=== PATIENT | female | born 1945 | race African-American/Black ===

== ENCOUNTER 2017-07-30 17:46 | Emergency (ER) | payer MEDICARE, OTHER ==
[~2017-07-30] VITALS: Ht 165.1 cm; Wt 75.0 kg
[~2017-07-30 17:46] MED LIST: ALEN35TA32 PO; ASCO500 PO; ENAL20TA PO; METF500T4 PO; VERA120T11 PO; VITAD1000 PO
[2017-07-30 17:54] VITALS: BP 175/95
[2017-07-30 18:08] LABS: GLUCOSE,POINT OF CARE 119 MG/DL (70-110)
[2017-07-30] MEDS ORDERED: CEPHALEXIN MONOHYDRATE 500 MG CAPSULE PO ONE (18:45)
== END 2017-07-30 19:15 | disposition home or self-care (01) ==
LOC: EMS 17:48
DX: S90.561A Insect bite (nonvenomous), right ankle, initial encounter (principal); L08.9 Local infection of the skin and subcutaneous tissue, unspecified; I10 Essential (primary) hypertension; Z91.018 Allergy to other foods; W57.XXXA Bitten or stung by nonvenomous insect and other nonvenomous arthropods, initial encounter; Y93.89 Activity, other specified; Y92.89 Other specified places as the place of occurrence of the external cause; Y99.8 Other external cause status
CPT/HCPCS: 82962; 99283

== ENCOUNTER 2017-09-08 06:06 | Inpatient (IN) | payer MEDICARE, OTHER ==
[~2017-09-08] VITALS: Ht 165.1 cm; Wt 74.5 kg
[2017-09-08 06:23] LABS: GLUCOSE,POINT OF CARE 100 MG/DL (70-110)
[2017-09-08] MEDS: SODIUM CHLORIDE 0.9% 1,000 ML IV ONE ×2 (09:10→10:42)
[2017-09-08] MEDS: FAMOTIDINE 10 MG/ML 2 ML VIAL IVP ONE ×2 (09:11→10:41)
[2017-09-08] MEDS: MethylPREDNISolone SOD SUCC 125 MG/2 ML VIAL IVP ONE ×2 (09:11→10:41)
[2017-09-08] MEDS: DiphenhydrAMINE HCL 50 MG/ML VIAL IVP ONE ×2 (09:11→10:42)
[2017-09-08 15:26] LABS: BASOPHILS % (AUTO) 0.3 % (0.0-2.0); EOSINOPHILS % (AUTO) 0 % (1.0-6.0); HEMATOCRIT 37.8 % (36-46); LYMPHOCYTES # (AUTO) 0.8 K/uL (1.0-4.8); LYMPHOCYTES % (AUTO) 12.1 % (22.0-44.0); MEAN CORPUSCULAR HEMOGLOBIN 22.1 pg (26.0-34.0); MEAN CORPUSCULAR HGB CONC 31.7 G/dL (31.0-37.0); MEAN CORPUSCULAR VOLUME 70 fL (80-100); MONOCYTES % (AUTO) 0.7 % (2.0-9.0); NEUTROPHILS # (AUTO) 5.8 K/uL (1.8-7.7); RED BLOOD CELL COUNT(AUTO) 5.42 MIL/uL (4.00-5.20)
[2017-09-08] MEDS ORDERED: ACETAMINOPHEN 325 MG TABLET PO PRN ×2 (15:30→19:45)
[2017-09-08] MEDS ORDERED: 0.9% SODIUM CHLORIDE 10 ML SYRINGE IVP PRN (15:30)
[2017-09-08] MEDS ORDERED: ONDANSETRON HCL 4 MG/2 ML VIAL IVP PRN ×2 (15:30→19:45)
[2017-09-08 15:32] LABS: NEUTROPHILS % (AUTO) 86.9 % (40.0-70.0)
[2017-09-08 16:00] LABS: ANION GAP 10 mmol/L (8-16); CARBON DIOXIDE 26 mmol/L (22-29); CHLORIDE 105 mmol/L (98-107); CREATININE 0.98 mg/dL (0.60-1.30); GLOMERULAR FILTR. RATE CALC > 60 mL/min (>60); GLUCOSE,RANDOM 155 mg/dL (70-110); PROTHROMBIN TIME 10.4 SEC (9.4-11.6); SODIUM SERUM 141 mmol/L (136-145); UREA NITROGEN, BLOOD 12 mg/dL (7-18)
[2017-09-08 16:07] LABS: ALANINE AMINOTRANSFERASE 18 U/L (12-78); ALKALINE PHOSPHATASE 70 U/L (46-116); ASPARTATE AMINOTRANSFERASE 13 U/L (15-37); BILIRUBIN,TOTAL 0.3 mg/dL (0.1-1.0); TOTAL PROTEIN, SERUM 8.1 g/dL (6.4-8.2)
[2017-09-08 16:19] LABS: PLATELET COUNT (AUTO) 298 K/uL (150-450)
[2017-09-08 16:34] VITALS: BP 148/59
[2017-09-08] MEDS: MetFORMIN HCL 500 MG TABLET PO SCH (18:32)
[2017-09-08] MEDS: CHOLECALCIFEROL (VIT D3) 1,000 UNITS TABLET PO SCH (18:32)
[2017-09-08] MEDS: ASCORBIC ACID 500 MG TABLET PO SCH (18:33)
[2017-09-08 19:07] LABS: GLUCOMETER DEV NAME(LOC) 6N 1E; GLUCOSE,POINT OF CARE 175 MG/DL (70-110)
[2017-09-08 19:30] VITALS: BP_SYST 119; BP_SYST 148; BP_DIAS 53; BP_DIAS 78
[2017-09-08] MEDS ORDERED: MAGNESIUM HYDROXIDE SUSPENSION 30 ML UDCUP PO PRN (19:45)
[2017-09-08] MEDS ORDERED: ZOLPIDEM TARTRATE 5 MG TABLET PO PRN (19:45)
[2017-09-08] MEDS ORDERED: MORPHINE SULFATE 2 MG/ML SYRINGE IVP PRN (19:45)
[2017-09-08] MEDS ORDERED: BISACODYL 10 MG RECTAL RECTAL SUPPOSITORY PR PRN (19:45)
[2017-09-08] MEDS ORDERED: HYDROCODONE/ACETAMINOPHEN 5-325 MG TABLET PO PRN (19:45)
[2017-09-08] MEDS: MethylPREDNISolone SOD SUCC 40 MG/ML VIAL IVP SCH (20:56)
[2017-09-08] MEDS: DiphenhydrAMINE HCL 25 MG CAPSULE PO SCH (20:56)
[2017-09-08] MEDS: DOCUSATE SODIUM 100 MG CAPSULE PO SCH (20:56)
[2017-09-08] MEDS: FAMOTIDINE 10 MG/ML 2 ML VIAL IVP SCH (20:56)
[2017-09-08] MEDS: VERAPAMIL HCL 120 MG ER TABLET PO SCH (20:56)
[2017-09-08] MEDS ORDERED: DEXTROSE 50%-WATER 25 GM/50 ML SYRINGE IVP PRN (21:15)
[2017-09-08] MEDS: INSULIN ASPART 100 UNITS/ML SQ PRN (21:21)
[2017-09-08 22:02] LABS: GLUCOMETER DEV NAME(LOC) 6N 2D; GLUCOSE,POINT OF CARE 246 MG/DL (70-110)
[2017-09-09 00:02] VITALS: BP 157/90
[2017-09-09 04:00] VITALS: BP 140/79
[2017-09-09] MEDS: INSULIN ASPART 100 UNITS/ML SQ PRN ×4 (05:48→20:58)
[2017-09-09 05:57] LABS: GLUCOMETER DEV NAME(LOC) 6N 2D; GLUCOSE,POINT OF CARE 225 MG/DL (70-110)
[2017-09-09] MEDS ORDERED: ALENDRONATE SODIUM 35 MG TABLET PO SCH (06:30)
[2017-09-09 07:48] VITALS: BP 148/75
[2017-09-09] MEDS: MethylPREDNISolone SOD SUCC 40 MG/ML VIAL IVP SCH ×2 (07:56→20:45)
[2017-09-09] MEDS: VERAPAMIL HCL 120 MG ER TABLET PO SCH (07:56)
[2017-09-09] MEDS: PANTOPRAZOLE SODIUM 40 MG DR TABLET PO SCH (07:57)
[2017-09-09] MEDS: DOCUSATE SODIUM 100 MG CAPSULE PO SCH ×2 (07:57→20:45)
[2017-09-09] MEDS: MetFORMIN HCL 500 MG TABLET PO SCH (07:57)
[2017-09-09] MEDS: FAMOTIDINE 10 MG/ML 2 ML VIAL IVP SCH ×2 (07:57→20:45)
[2017-09-09] MEDS: ASCORBIC ACID 500 MG TABLET PO SCH (07:57)
[2017-09-09] MEDS: CHOLECALCIFEROL (VIT D3) 1,000 UNITS TABLET PO SCH (07:57)
[2017-09-09] MEDS: DiphenhydrAMINE HCL 25 MG CAPSULE PO SCH ×2 (07:57→20:45)
[2017-09-09] MEDS: HEPARIN SODIUM,PORCINE 5,000 UNITS/ML VIAL SQ SCH ×3 (07:57→16:00)
[2017-09-09 12:00] VITALS: BP 137/73
[2017-09-09 12:53] LABS: GLUCOMETER DEV NAME(LOC) 6N 1E; GLUCOSE,POINT OF CARE 144 MG/DL (70-110)
[2017-09-09 15:56] VITALS: BP 118/74
[2017-09-09 19:22] LABS: GLUCOMETER DEV NAME(LOC) 6N 2D; GLUCOSE,POINT OF CARE 170 MG/DL (70-110)
[2017-09-09 20:17] VITALS: BP 132/68
[2017-09-10] MEDS: HEPARIN SODIUM,PORCINE 5,000 UNITS/ML VIAL SQ SCH ×2 (00:15→10:17)
[2017-09-10 00:16] VITALS: BP 140/76
[2017-09-10 05:49] VITALS: BP 144/96
[2017-09-10 05:53] LABS: GLUCOMETER DEV NAME(LOC) 6N 1E; GLUCOSE,POINT OF CARE 202 MG/DL (70-110)
[2017-09-10] MEDS: INSULIN ASPART 100 UNITS/ML SQ PRN ×2 (06:19→11:59)
[2017-09-10 07:52] VITALS: BP 148/79
[2017-09-10 08:47] LABS: GLUCOMETER DEV NAME(LOC) 6N 2D; GLUCOSE,POINT OF CARE 145 MG/DL (70-110)
[2017-09-10] MEDS ORDERED: PRED20 PO (09:49)
[2017-09-10] MEDS: PANTOPRAZOLE SODIUM 40 MG DR TABLET PO SCH (10:17)
[2017-09-10] MEDS: VERAPAMIL HCL 120 MG ER TABLET PO SCH (10:17)
[2017-09-10] MEDS: DiphenhydrAMINE HCL 25 MG CAPSULE PO SCH (10:17)
[2017-09-10] MEDS: MetFORMIN HCL 500 MG TABLET PO SCH (10:17)
[2017-09-10] MEDS: CHOLECALCIFEROL (VIT D3) 1,000 UNITS TABLET PO SCH (10:17)
[2017-09-10] MEDS: DOCUSATE SODIUM 100 MG CAPSULE PO SCH (10:17)
[2017-09-10] MEDS: MethylPREDNISolone SOD SUCC 40 MG/ML VIAL IVP SCH (10:17)
[2017-09-10] MEDS: FAMOTIDINE 10 MG/ML 2 ML VIAL IVP SCH (10:17)
[2017-09-10] MEDS: ASCORBIC ACID 500 MG TABLET PO SCH (10:17)
[2017-09-10 12:07] VITALS: BP 152/71
[2017-09-10 19:38] LABS: GLUCOMETER DEV NAME(LOC) 6N 1E; GLUCOSE,POINT OF CARE 103 MG/DL (70-110)
[2017-09-12] MEDS ORDERED: ALENDRONATE SODIUM 35 MG TABLET PO SCH (06:30)
== END 2017-09-10 14:25 | disposition home or self-care (01) | DRG 916 ==
LOC: EDUNIT# 06:06 → EMS 06:08 → 6N 15:18
PROVIDERS: ADMIT Internal Medicine; ATTEND Internal Medicine
DX: T78.3XXA Angioneurotic edema, initial encounter (principal); E11.9 Type 2 diabetes mellitus without complications; E55.9 Vitamin D deficiency, unspecified; X58.XXXA Exposure to other specified factors, initial encounter; I10 Essential (primary) hypertension; Z90.710 Acquired absence of both cervix and uterus; Z91.018 Allergy to other foods; Z91.013 Allergy to seafood; Z79.84 Long term (current) use of oral hypoglycemic drugs; Z79.899 Other long term (current) drug therapy
CPT/HCPCS: 82962; 93005; 96374; 96375; 99285; J1200; J1644; J2920; J2930; J3490; J7030

== ENCOUNTER 2017-11-04 12:35 | Emergency (ER) | payer MEDICARE, OTHER ==
[~2017-11-04] VITALS: Ht 165.1 cm; Wt 74.1 kg
[~2017-11-04 12:35] MED LIST changes: +PRED20 PO
[2017-11-04 12:48] LABS: GLUCOSE,POINT OF CARE 119 MG/DL (70-110)
[2017-11-04] MEDS ORDERED: VERA180SR PO (15:16)
[2017-11-04] MEDS: ONDANSETRON HCL 4 MG TABLET PO ONE (16:18)
[2017-11-04] MEDS: HYDROCODONE/ACETAMINOPHEN 5-325 MG TABLET PO ONE (16:19)
[2017-11-04 17:41] VITALS: BP 142/82
== END 2017-11-04 19:05 | disposition home or self-care (01) ==
LOC: EMS 12:36
DX: S16.1XXA Strain of muscle, fascia and tendon at neck level, initial encounter (principal); M48.02 Spinal stenosis, cervical region; J06.9 Acute upper respiratory infection, unspecified; E11.9 Type 2 diabetes mellitus without complications; I44.7 Left bundle-branch block, unspecified; I10 Essential (primary) hypertension; Z88.8 Allergy status to other drugs, medicaments and biological substances; Z91.013 Allergy to seafood; Z91.018 Allergy to other foods; X58.XXXA Exposure to other specified factors, initial encounter; Y93.89 Activity, other specified; Y92.89 Other specified places as the place of occurrence of the external cause; Y99.8 Other external cause status
CPT/HCPCS: 70450; 72125; 82962; 93005; 99284; Q0162

== ENCOUNTER 2017-11-05 22:09 | Emergency (ER) | payer MEDICARE, OTHER ==
[~2017-11-05] VITALS: Ht 165.1 cm; Wt 74.0 kg
[~2017-11-05 22:09] MED LIST changes: -ENAL20TA PO; -VERA120T11 PO; +VERA180SR PO
[2017-11-05] MEDS ORDERED: KETOROLAC TROMETHAMINE 60 MG/2 ML VIAL IM ONE (23:00)
[2017-11-05] MEDS ORDERED: KETOROLAC TROMETHAMINE 30 MG/ML VIAL IVP ONE (23:00)
[2017-11-05 23:54] VITALS: BP 150/74
== END 2017-11-05 23:59 | disposition home or self-care (01) ==
LOC: EMS 22:14
DX: S13.9XXA Sprain of joints and ligaments of unspecified parts of neck, initial encounter (principal); Z91.013 Allergy to seafood; E11.9 Type 2 diabetes mellitus without complications; I10 Essential (primary) hypertension; Z79.899 Other long term (current) drug therapy; X58.XXXA Exposure to other specified factors, initial encounter; Y93.89 Activity, other specified; Y92.89 Other specified places as the place of occurrence of the external cause; Y99.8 Other external cause status
CPT/HCPCS: 96372; 99283; J1885

== ENCOUNTER 2017-11-13 13:22 | Emergency (ER) | payer MEDICARE, OTHER ==
[~2017-11-13] VITALS: Ht 165.1 cm; Wt 74.1 kg
[2017-11-13 13:32] LABS: GLUCOSE,POINT OF CARE 115 MG/DL (70-110)
[2017-11-13] MEDS ORDERED: HYDR-4061 PO (13:33)
[2017-11-13] MEDS ORDERED: DEXAMETHASONE SOD PHOS 4 MG/ML 5 ML VIAL IM ONE (16:15)
[2017-11-13] MEDS ORDERED: MORPHINE SULFATE 4 MG/ML SYRINGE IM ONE (16:15)
[2017-11-13] MEDS ORDERED: ONDANSETRON HCL 4 MG/2 ML VIAL IM ONE (16:15)
[2017-11-13] MEDS ORDERED: LIDOCAINE HCL 5% TRANSDERMAL PATCH TD ONE (16:30)
[2017-11-13 16:52] VITALS: BP 174/56
== END 2017-11-13 17:27 | disposition home or self-care (01) ==
LOC: EMS 13:24
DX: M50.80 Other cervical disc disorders, unspecified cervical region (principal); M62.838 Other muscle spasm; E11.9 Type 2 diabetes mellitus without complications; I10 Essential (primary) hypertension; Z88.8 Allergy status to other drugs, medicaments and biological substances; Z91.018 Allergy to other foods; Z91.013 Allergy to seafood
CPT/HCPCS: 82962; 96372; 99284; J1100; J2270; J2405

== ENCOUNTER 2019-06-18 21:14 | Emergency (ER) | payer MEDICARE, OTHER ==
[~2019-06-18] VITALS: Ht 160 cm; Wt 76.8 kg
[~2019-06-18 21:14] MED LIST changes: -ALEN35TA32 PO; +CHOL100018 PO; +HYDR-4061 PO; -METF500T4 PO; -PRED20 PO; -VERA180SR PO; -VITAD1000 PO
[2019-06-18] MEDS ORDERED: MethylPREDNISolone SOD SUCC 125 MG/2 ML VIAL IVP ONE (21:30)
[2019-06-18] MEDS ORDERED: FAMOTIDINE 10 MG/ML 2 ML VIAL IVP ONE (21:30)
[2019-06-18] MEDS ORDERED: METF-444 PO (21:42)
[2019-06-18] MEDS ORDERED: NIFE10 PO (21:54)
[2019-06-18 22:57] VITALS: BP 128/81
== END 2019-06-19 00:15 | disposition home or self-care (01) ==
LOC: EMS 21:15
DX: T78.1XXA Other adverse food reactions, not elsewhere classified, initial encounter (principal); I10 Essential (primary) hypertension; E11.9 Type 2 diabetes mellitus without complications; Z91.018 Allergy to other foods; Z91.013 Allergy to seafood; Z88.8 Allergy status to other drugs, medicaments and biological substances; Z79.899 Other long term (current) drug therapy; X58.XXXA Exposure to other specified factors, initial encounter
CPT/HCPCS: 71045; 96374; 96375; 99283; J2930; J3490